=== PATIENT | female | born 1970 | race Two or more races ===

== ENCOUNTER 2024-08-08 10:45 | Emergency (ER) | payer OTHER, MEDICAID ==
[~2024-08-08] VITALS: Ht 157.5 cm; Wt 72.6 kg
[2024-08-08] MEDS: IV NS 0.9% 1,000 ML BAG IV ONE (11:00)
[2024-08-08] MEDS: ONDANSETRON HCL/PF 4 MG/2 ML VIAL IVP ONE (11:00)
[2024-08-08] MEDS: MORPHINE SULFATE INJ 2 MG/ML DISP.SYRIN IV ONE (11:00)
[2024-08-08] MEDS ORDERED: ONDANSETRON HCL/PF 4 MG/2 ML VIAL ONE (11:04)
[2024-08-08] MEDS ORDERED: MORPHINE SULFATE INJ 4 MG/ML DISP.SYRIN ONE (11:04)
[2024-08-08 11:18] LABS: BASOPHILS # (AUTO) 0.1 K/uL (0.0-0.2); BASOPHILS % (AUTO) 0.7 % (0.0-2.0); EOSINOPHILS # (AUTO) 0.1 K/uL (0.0-0.7); EOSINOPHILS % (AUTO) 1.5 % (0.0-6.0); HEMATOCRIT 42 % (33-45); HEMOGLOBIN 14.2 g/dL (11.5-14.8); LYMPHOCYTES # (AUTO) 2.9 K/uL (0.8-4.8); LYMPHOCYTES % (AUTO) 37.1 % (20.0-44.0); MEAN CORPUSCULAR HEMOGLOBIN 28 PG (26.0-33.0); MEAN CORPUSCULAR HGB CONC 34 g/dl (31.0-36.0); MEAN CORPUSCULAR VOLUME 83 fL (82-100); MONOCYTES # (AUTO) 0.5 K/uL (0.1-1.30); MONOCYTES % (AUTO) 5.8 % (2.0-12.0); NEUTROPHILS # (AUTO) 4.3 K/uL (1.8-8.9); NEUTROPHILS % (AUTO) 54.9 % (43.0-81.0); PLATELET COUNT (AUTO) 303 K/uL (150-450); RED BLOOD CELL COUNT(AUTO) 5.09 MIL/uL (4.0-5.2); RED CELL DISTRIBUTION WIDTH 14.1 % (11.5-15.0); WHITE BLOOD COUNT (AUTO) 7.9 K/uL (4.3-11.0)
[2024-08-08 11:25] LABS: CALCIUM, SERUM 9.6 mg/dL (8.5-10.1); CREATININE 0.8 mg/dL (0.6-1.3); POTASSIUM 4.3 mmol/L (3.5-5.1)
[2024-08-08] MEDS ORDERED: IOHEXOL-300 100 ML VIAL IV ONE (12:22)
[2024-08-08] MEDS ORDERED: IV NS 0.9% 250 ML IV ONE (12:22)
[2024-08-08] MEDS ORDERED: CT SWABBABLE VALVE TRANS SET 1 EA INFUS.SET MC ONE (12:22)
[2024-08-08 14:04] VITALS: BP 131/91; TEMP 99.6; O2SAT 100
== END 2024-08-08 14:04 | disposition home or self-care (01) ==
LOC: ER 11:10
DX: S20.212A Contusion of left front wall of thorax, initial encounter (principal); S09.8XXA Other specified injuries of head, initial encounter; I10 Essential (primary) hypertension; E11.9 Type 2 diabetes mellitus without complications; Z88.5 Allergy status to narcotic agent; V43.52XA Car driver injured in collision with other type car in traffic accident, initial encounter; Y93.89 Activity, other specified; Y92.415 Exit ramp or entrance ramp of street or highway as the place of occurrence of the external cause; Y99.8 Other external cause status
CPT/HCPCS: 99285; 71260; 96374; 96361; 96375; 93005; 70450; 74177; 85025; 80048; 36415; J2270; J2405; J7030; J7050; Q9967